=== PATIENT | male | born 1935 | race Caucasian/White ===

== ENCOUNTER 2017-09-13 05:44 | Inpatient (IN) | END 2017-09-17 16:20 | DRG 470 ==

== ENCOUNTER → 2018-07-25 | Outpatient (CLI) | END | disposition home or self-care (01) ==

== ENCOUNTER → 2018-09-20 | Outpatient (CLI) | payer MEDICARE, OTHER ==
[~2018-09-20] MED LIST: ASPI325T32 PO; LOSA25TA12 PO; OXYC-481 PO
--- NOTE | 2018-09-20 16:19 | CONS ---
Consult Date/Type/Reason Admit Date/Time Initial Consult Date Date/Time of Note DATE: 09/20/18 TIME: 16:15 Subjective 83-year-old male following up for review of right shoulder MRI. To recap his previous history he presented with right shoulder pain consistent with a right rotator cuff tendinitis versus tear after bowling. He failed treatment with a steroid injection as well as physical therapy. Therefore an MRI was ordered. He denies any changes in his symptoms. Objective Vitals Weight: 180 pound Height: 5 foot 10 inches Temperature: 90 point Heart Rate: 469 Blood Pressure: 138/73 Respiratory Rate: 12 Exam Right shoulder Skin is intact. There is atrophy in the infraspinatus and supraspinatus fossa. None TTP. ----- Active ROM: FE: 140 Abd: 140 ER: 45 IR: L1 Negative lift off or belly press ----- Passive ROM: FE: 140 Abd: 140 ER: 70 IR: L1 ----- Negative extensor lag ----- Muscle Strength Supraspinatus: 4/5 Subscapularis: 4/5 Infraspinatus: 4-/5 Teres Minor: 4-/5 ----- Positive Impingement Negative Reena's Test Negative Drop Sign ----- Sensation intact to light touch in a median, ulnar, radial, and axillary distribution. Motor is intact in a median, ulnar, radial, anterior interosseous, and posterior interosseous nerve distribution. Radial and ulnar artery are +2. Wrist extension and flexion are intact. Compartments are soft Results/Medications Home Meds Active Scripts Aspirin (Aspir-Altagracia) 325 Mg Tablet.dr, 325 MG PO DAILY for 42 Days, #42 TAB Prov:BERTO CABALLERO MD 09/14/17 Oxycodone Hcl* (IR) (Roxicodone*) 5 Mg Tab, 5-10 MG PO q4-6 hours PRN for PAIN for 14 Days, #90 TAB Prov:BERTO CABALLERO MD 09/14/17 Reported Medications Losartan Potassium* (Losartan Potassium*) 25 Mg Tablet, 25 MG PO DAILY, TAB 09/13/17 Imaging MRI of the right shoulder was personally reviewed. Full-thickness supraspinatus tendon tear with extension into the anterior infraspinatus. There is retraction to the glenoid. The humeral head is mildly high riding. There is mild to moderate supraspinatus muscle atrophy. There is high-grade partial bursal sided tear of the subscapularis. There is a full-thickness tear of the long head of the biceps with retraction. There is full-thickness chondral loss along the superior and superomedial humeral head with moderate to high-grade chondral loss of the anterior glenoid rim. 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 Prior to his injury 3 months ago he had no issues with his shoulder and had full strength and range of motion. Since then he has been unable to participate in his hobbies and activities of daily living. He is failed conservative treatment. Recommending following up with an orthopedic sports surgeon for further evaluation of treatment for this rotator cuff tear. BERTO CABALLERO MD Sep 20, 2018 16:19
== END | disposition home or self-care (01) ==
LOC: HKI 13:47
PROVIDERS: ATTEND Orthopaedic Surgery Adult Reconstructive Orthopaedic Surgery
DX: M25.511 Pain in right shoulder (principal)
CPT/HCPCS: G0463